=== PATIENT | female | born 1955 | race Caucasian/White ===

== ENCOUNTER 2022-12-29 07:02 | Day surgery (SDC) | payer MEDICARE, BC ==
[~2022-12-29 07:02] MED LIST: Dextrose 5%-0.45% NaCl 1,000 ML IV SCH; Sodium Chloride 0.9% 10 ML Syringe FLUSH PRN; Sodium Chloride 0.9% 10 ML Syringe FLUSH SCH
[2022-12-29] MEDS ORDERED: fentaNYL 100 MCG/2 ML SDV ONE (08:14)
[2022-12-29] MEDS ORDERED: Midazolam 1 MG/ML 2 ML SDV ONE (08:14)
[2022-12-29] MEDS ORDERED: fentaNYL 100 MCG/2 ML SDV IV ONE ×4 (08:20→08:31)
[2022-12-29] MEDS ORDERED: Midazolam 1 MG/ML 2 ML SDV IV ONE ×6 (08:22→08:28)
== END 2022-12-29 10:00 | disposition home or self-care (01) ==
LOC: DL.ENDO 07:02
PROVIDERS: ATTEND Internal Medicine Gastroenterology
DX: Z12.11 Encounter for screening for malignant neoplasm of colon (principal); K64.4 Residual hemorrhoidal skin tags; E78.00 Pure hypercholesterolemia, unspecified; R73.9 Hyperglycemia, unspecified; E66.09 Other obesity due to excess calories; Z98.890 Other specified postprocedural states; Z68.28 Body mass index [BMI] 28.0-28.9, adult; Z91.048 Other nonmedicinal substance allergy status; Z91.018 Allergy to other foods
CPT/HCPCS: G0121; J2250; J3010; J7042